=== PATIENT | male | born 1980 | race Caucasian/White ===

== ENCOUNTER 2023-10-21 12:12 | Emergency (ER) | payer OTHER, SELFPAY ==
[2023-10-21 12:20] VITALS: BP 144/96
--- NOTE | 2023-10-21 13:12 | ED.GENMED ---
History of Present Illness
General
Chief Complaint: Musculo-Skeletal Complaint
Source: patient
Exam Limitations: none
Time Seen by Provider: 10/21/23 12:38
Nursing documentation reviewed up to this point in time: agreed with
History of Present Illness
History of Present Illness:
42-year-old male presents to the ER for evaluation of left neck pain. He reports several weeks ago he was waterskiing and felt the worst he had first and had neck pain after. He has had persistent neck pain and has been eval by his PCP. Today
however he was stretching his neck to the right and felt intense pain down his left neck that went into his left shoulder.
He denies any numbness tingling or weakness to his fingers/arm/hands. He denies any headache blurry vision dizziness vertigo.
Past History
Past History
ED Past Medical History: None
ED Past Surgical History: None
Review of Systems
Review of Systems
Allergies reviewed?: Yes
All Other Systems: ROS reviewed and negative except as documented in HPI and ROS
Constitutional: Reports no symptoms
Musculoskeletal: Reports other (left lateral neck pain )
Skin: Reports no symptoms
Neurological: Denies headache or numbness
Endocrine: Reports no symptoms
Phy Exam
General Physical Exam
General Presentation: no apparent distress
General age: appears stated age
General Skin: warm
General Habitus: normal
General Mental: alert
General Hydration: appears well hydrated
Neurological Exam
Neurological Exam: alert, oriented x3 and other (Normal distal sensation to bilateral upper extremities normal machine stuffer automatic strength and strength to b/l arms )
Musculoskeletal Exam
Musculoskeletal Exam: other (Patient tender along the left lateral paraspinal spinal cervical muscle no bony midline tenderness)
Skin Exam
Skin Exam: normal color and warm/dry
Psychiatric Exam
Psychiatric Exam: normal mood/affect
Course
Orders/Labs/Results
Orders:
Orders
10/21/23 12:16
EKG [Electrocardiogram (*1)] Urgent
Reason for Study: Chest Pain
EKG- Treatment ONCE
10/21/23 13:11
CT Cervical Spine W/o Iv Contr Urgent
Comment:
Reason For Exam: trauma
10/21/23 13:12
Ketorolac [Toradol] 30 mg IM NOW STA
Vital Signs
Initial and Last Documented VS:
Initial Vital Signs
Temp Pulse Resp BP Pulse Ox
98.3 F 103 16 144/96 98
10/21/23 12:20 10/21/23 12:20 10/21/23 12:20 10/21/23 12:20 10/21/23 12:20
Last Documented Vital Signs
Temp Pulse Resp BP Pulse Ox
98.3 F 103 16 144/96 98
10/21/23 12:20 10/21/23 12:20 10/21/23 12:20 10/21/23 12:20 10/21/23 12:20
MDM/Problems Addressed
Differential Diagnosis Includes:
Not limited to cervical radiculopathy, neck strain
MDM/Problems Addressed:
As documented patient injured his neck several weeks ago waterskiing and then moved his neck today complaining of pain to the left side of his neck rating to his left shoulder. He has no neurological deficits on exam I reviewed CAT scan of neck
which does show findings consistent with disc herniations and mild spinal cord compression. Patient was given Toradol here feeling improved will DC with muscle laxer and steroid taper with close outpatient follow-up. d/c either neuro -surg or
ortho f/u
*Radiology
Radiology exam reviewed: radiology read reviewed
*Critical Care Note
Total Time (30-74mins, 75-104mins- exclusive of procedures): Not Applicable
ED Attending Note
-
Portions of this chart may have been created with voice recognition software.� Occasional wrong word or��sound alike� substitutions may have occurred due to the inherent limitations of voice recognition software.
Discharge Plan
Departure
Patient Disposition: Home (Routine Discharge)
Date of Disposition: 10/21/23
Time of Disposition: 14:39
Patient with high blood pressure during this ER visit?: Yes
Condition: Fair
Covid-19: Not Applicable
Discharge Problem:
Acute neck pain, Cervical radiculopathy
Instructions: Radiculopathy (DC), Neck Pain ED, BLOOD PRESSURE
Prescriptions:
New
prednisone 10 mg Tablet
See Rx Instructions .ROUTE .COMPLEX Qty: 30 0RF
Rx Instructions:
Take By Mouth:
40 mg daily x3 days, 30 mg daily x3 days,
20 mg daily x3 days, 10 mg daily x3 days.
cyclobenzaprine 10 mg tablet
10 mg PO TID PRN (Reason: muscle spasm) Qty: 10 0RF
No Action
cephalexin 500 MG capsule
500 mg PO QID Qty: 20 0RF
Referrals:
Rosalind Toledo, [Family Provider] -
Emmanuel Dong MD [Active] -
Joellen Valderrama MD [Active] -
Activity Restrictions/Additional Instructions:
As discussed follow-up with family doctor and in addition you may follow-up with either neurosurgery or orthopedics for further evaluation and treatment of neck symptoms and pain. A prescription was sent for steroids as well as a muscle relaxer to
take as directed. No driving or drinking alcohol while taking this muscle laxer. Medication will cause drowsiness. Return if any worsening of symptoms including weakness in extremities or any further concerns.
Interventions
Interventions:
*Risk Screen - Suicide Last Done: 10/21/23 12:20
*General Assessment Last Done: 10/21/23 12:20
*Neglect/Abuse Screening Last Done: 10/21/23 12:20
*ED COVID-19 Vaccine History Last Done: 10/21/23 13:20
ED-Musculoskeletal Assessment Last Done: 09/14/24 13:21
Discharge Date and Time
Print Language: IRANIAN
[2023-10-21] MEDS: TORADOL 30 MG IM (13:18)
== END 2023-10-21 14:59 | disposition home or self-care (01) ==
LOC: EMR 12:12
PROVIDERS: EMERGENCY PHYSICIAN Emergency Medicine; FAMILY PHYSICIAN Internal Medicine
DX: M54.12 Radiculopathy, cervical region (principal); R03.0 Elevated blood-pressure reading, without diagnosis of hypertension
CPT/HCPCS: 99284; 96372; 72125; 93005